=== PATIENT | male | born 1990 | race Two or more races ===

== ENCOUNTER 2016-06-25 16:35 | Emergency (ER) | payer OTHER ==
[~2016-06-25] VITALS: Ht 172.7 cm; Wt 90.7 kg
[2016-06-25 16:35] VITALS: BP 126/67
[2016-06-25] MEDS ORDERED: AMPH15TA2 PO (16:47)
== END 2016-06-25 17:14 | disposition home or self-care (01) ==
LOC: ER 16:36
DX: F41.9 Anxiety disorder, unspecified (principal); R00.2 Palpitations; T43.625A Adverse effect of amphetamines, initial encounter; Y92.89 Other specified places as the place of occurrence of the external cause
CPT/HCPCS: A4606; Z7610